=== PATIENT | female | born 1970 | race Caucasian/White ===

== ENCOUNTER 2016-07-12 21:11 | Emergency (ER) | payer BC, OTHER ==
[~2016-07-12 21:11] MED LIST: ALBUTEROL17 GM INH; ALBUTEROL20 ml INH; ALLEGRA ALLERGY60 MG PO; AZITHROMYCIN250 MG PO; BACTRIM DS TABL1 TA1 PO; BAYER CHEWABLE81 MG PO; FERRO-TIME325 MG PO; HEROIN; HYDROCODON-ACE1 EAC9 PO; K-DUR20 ME2 PO; KEFLEX PO; LIPITOR PO; MORGIDOX100 MG PO; NICOTINE TRANSD21 MG TD; NO MEDICATIONS; PREDNISONE10 MG/DOSE PO; PYRIDIUM PO; VOLTAREN50 MG PO
[2017-01-23] MEDS ORDERED: NO MEDICATIONS (08:14)
== END 2016-07-12 23:44 | disposition home or self-care (01) ==
LOC: SED 21:11
DX: F11.10 Opioid abuse, uncomplicated (principal); F32.9 Major depressive disorder, single episode, unspecified; R03.0 Elevated blood-pressure reading, without diagnosis of hypertension; F17.210 Nicotine dependence, cigarettes, uncomplicated; Z88.1 Allergy status to other antibiotic agents
CPT/HCPCS: 99283